=== PATIENT | female | born 2000 | race Caucasian/White ===

== ENCOUNTER → 2018-01-24 | Outpatient (CLI) | payer BC ==
[2018-01-24 14:20] LABS: BASO % 0.2 % (0.0-1.0); EOS # 0.1 10^3/uL (0.0-0.50); EOS % 0.9 % (0.0-3.0); HEMATOCRIT 33.5 % (36.0-47.0); HEMOGLOBIN 9.9 g/dl (12.0-15.5); IMMATURE GRANULOCYTE % 0.3 % (0-3.0); LYMPH # 2.4 10^3/uL (1.5-6.5); LYMPH % 25.5 % (24.0-44.0); MEAN CORPUSCULAR HEMOGLOBIN 20.6 pg (27.0-33.0); MEAN CORPUSCULAR HGB CONC 29.6 g/dl (32.0-36.5); MEAN CORPUSCULAR VOLUME 69.6 fl (80.0-96.0); MONO # 0.6 10^3/uL (0.0-0.8); MONO % 6.6 % (0.0-5.0); NEUTROPHILS # 6.3 10^3/uL (1.8-7.7); NEUTROPHILS % 66.5 % (36.0-66.0); PLATELET COUNT, AUTOMATED 367 10^3/uL (150-450); RED BLOOD COUNT 4.81 10^6/uL (4.00-5.40); RED CELL DISTRIBUTION WIDTH 17.4 % (11.5-14.5); WHITE BLOOD COUNT 9.4 10^3/uL (4.0-10.0)
[2018-01-24 14:43] LABS: ALBUMIN 3.6 GM/DL (3.2-5.2); ALBUMIN/GLOBULIN RATIO 0.84 (1.00-1.93); ALKALINE PHOSPHATASE 85 U/L (45-117); ALT/SGPT 18 U/L (12-78); ANION GAP 7 MEQ/L (8-16); AST/SGOT 16 U/L (7-37); BILIRUBIN,TOTAL 0.2 MG/DL (0.2-1.0); BLOOD UREA NITROGEN 12 MG/DL (7-18); CALCIUM LEVEL 8.8 MG/DL (8.5-10.1); CARBON DIOXIDE LEVEL 26 MEQ/L (21-32); CHLORIDE LEVEL 105 MEQ/L (98-107); CREATININE FOR GFR 0.71 MG/DL (0.55-1.30); FREE T4 1.09 NG/DL (0.78-1.33); GLUCOSE, FASTING 72 MG/DL (70-100); POTASSIUM SERUM 4.1 MEQ/L (3.5-5.1); SODIUM LEVEL 138 MEQ/L (136-145); TOTAL PROTEIN 7.9 GM/DL (6.4-8.2)
[2018-01-26 00:06] LABS: TISSUE TRANSGLUTAMINASE IgA <2 U/mL (0-3)
[2018-02-04 00:06] LABS: GASTRIN 27 pg/mL (0-115)
[2018-02-04 00:06] LABS: CHROMOGRANIN A <1 nmol/L (0-5)
== END ==
LOC: M LAB 13:05
DX: D50.9 Iron deficiency anemia, unspecified (principal)

== ENCOUNTER → 2018-02-05 | Outpatient (REF) | payer BC | LOC: M LAB REF 11:24 | DX: D50.9 Iron deficiency anemia, unspecified (principal) | CPT/HCPCS: 82705 ==

== ENCOUNTER → 2018-02-11 | Day surgery (SDC) | payer BC ==
[~2018-02-11] MED LIST: LIDOCAINE 2% INJ 100 MG/5 ML SDV (FOR ANES.) As Ordered; PROPOFOL 200 MG/20 ML VIAL As Ordered; fentaNYL 100 MCG/2 ML INJECTION (J3010) As Ordered
[2018-02-11] MEDS: NS 1,000 ML IV (12:36)
== END | disposition home or self-care (01) ==
LOC: M OPP 10:57
DX: K62.89 Other specified diseases of anus and rectum (principal); K63.89 Other specified diseases of intestine; D50.9 Iron deficiency anemia, unspecified; R19.7 Diarrhea, unspecified; R06.83 Snoring; G47.9 Sleep disorder, unspecified; Z79.899 Other long term (current) drug therapy; Z80.0 Family history of malignant neoplasm of digestive organs; Z87.820 Personal history of traumatic brain injury
CPT/HCPCS: 45380

== ENCOUNTER 2018-04-15 09:29 | Day surgery (SDC) | payer BC ==
[~2018-04-15 09:29] MED LIST changes: -fentaNYL 100 MCG/2 ML INJECTION (J3010) As Ordered
[2018-04-15] MEDS: NS 1,000 ML IV (10:40)
[2018-04-15] MEDS ORDERED: PROPOFOL 200 MG/20 ML VIAL As Ordered (11:14)
== END 2018-04-15 11:55 | disposition home or self-care (01) ==
LOC: M OPP 11:55
DX: K55.20 Angiodysplasia of colon without hemorrhage (principal); D50.9 Iron deficiency anemia, unspecified; R19.7 Diarrhea, unspecified; R93.3 Abnormal findings on diagnostic imaging of other parts of digestive tract; K21.9 Gastro-esophageal reflux disease without esophagitis; F31.9 Bipolar disorder, unspecified; F41.9 Anxiety disorder, unspecified; G24.9 Dystonia, unspecified; Z79.899 Other long term (current) drug therapy; Z91.89 Other specified personal risk factors, not elsewhere classified; Z88.0 Allergy status to penicillin; Z87.19 Personal history of other diseases of the digestive system; Z87.820 Personal history of traumatic brain injury
CPT/HCPCS: 45388

== ENCOUNTER → 2020-01-11 | Outpatient (REF) | payer BC ==
[2020-01-11 15:35] LABS: BASO % 0.2 % (0.0-1.0); EOS # 0.1 10^3/uL (0.0-0.5); EOS % 0.9 % (0.0-3.0); HEMOGLOBIN 10.5 g/dl (12.0-15.5); LYMPH # 2.4 10^3/uL (1.5-5.0); LYMPH % 28.9 % (24.0-44.0); MEAN CORPUSCULAR HEMOGLOBIN 22.4 pg (27.0-33.0); MEAN CORPUSCULAR VOLUME 74.6 fl (80.0-96.0); MONO # 0.5 10^3/uL (0.0-0.8); MONO % 6.4 % (0.0-5.0); NEUTROPHILS # 5.2 10^3/uL (1.5-8.5); NEUTROPHILS % 63.2 % (36.0-66.0); PLATELET COUNT, AUTOMATED 407 10^3/uL (150-450); RED BLOOD COUNT 4.69 10^6/uL (4.00-5.40); WHITE BLOOD COUNT 8.2 10^3/uL (4.0-10.0)
[2020-01-11 15:57] LABS: ERYTHROCYTE SEDIMENTATION RATE 52 mm/hr (0-20)
[2020-01-13 00:06] LABS: ANA (HEP2) Negative (.)
[2020-01-14 10:14] LABS: C REACTIVE PROTEIN QUANTITATIV 7 mg/dL (0-10)
[2020-01-14 10:32] LABS: GLUCOSE, FASTING 87 MG/DL (65-99)
[2020-01-14 10:33] LABS: BLOOD UREA NITROGEN 11 MG/DL (6-20); CREATININE FOR GFR 0.77 MG/DL (0.57-1.00); SODIUM LEVEL 141 mmol/L (134-144)
[2020-01-14 10:34] LABS: CALCIUM LEVEL 10.1 MG/DL (8.7-10.2); CARBON DIOXIDE LEVEL 20 mmol/L (20-29); CHLORIDE LEVEL 104 mmol/L (96-106); POTASSIUM SERUM 4.6 mmol/L (3.5-5.2)
[2020-01-14 10:35] LABS: ALBUMIN 4.4 GM/DL (3.9-5.9); TOTAL PROTEIN 7.8 GM/DL (6.0-8.5)
[2020-01-14 10:36] LABS: ALT/SGPT 15 IU/L (0-32); BILIRUBIN,TOTAL < 0.2 MG/DL (0.0-1.2)
[2020-01-14 10:37] LABS: IMMUNOGLOBULIN A 377 MG/DL (87-352); IMMUNOGLOBULIN G 1581 MG/DL (586-1602)
[2020-01-14 10:38] LABS: IMMUNOGLOBULIN M 132 MG/DL (26-217)
[2020-01-19 06:36] LABS: GLOMERULAR FILTRATION RATE > 60.0 (>60)
== END ==
LOC: M SFHCPLAZ 13:05
PROVIDERS: ATTEND Internal Medicine Infectious Disease
DX: B00.9 Herpesviral infection, unspecified (principal); L98.491 Non-pressure chronic ulcer of skin of other sites limited to breakdown of skin

== ENCOUNTER → 2020-01-20 | Outpatient (REF) | payer BC | LOC: M LAB REF 17:37 | PROVIDERS: ATTEND Dermatology | DX: R21 Rash and other nonspecific skin eruption (principal) ==